=== PATIENT | male | born 1985 | race Caucasian/White ===

== ENCOUNTER 2016-07-16 10:25 | Emergency (ER) | payer SELFPAY ==
[2016-07-16] MEDS ORDERED: SODIUM CHLORIDE 0.9% 1,000 ML ONE (11:55)
[2016-07-16] MEDS ORDERED: ONDANSETRON 4 MG/2ML 2 ML VIAL ONE (11:55)
[2016-07-16 12:14] LABS: ABSOLUTE NEUTROPHIL COUNT 10.2 K/mm3 (1.8-7.7); BASO % 0.2 % (0.2-1.0); EOS % 0.1 % (0.9-2.9); HEMATOCRIT 45.3 % (32.0-52.0); HEMOGLOBIN 15.6 gm/l (14.0-18.0); IMM NEUT% 0.3 % (0-1); LYMPH # 1.1 (1.0-4.8); LYMPH % 8.9 % (15-45); MEAN CELL VOLUME 89.3 fl (80.0-94.0); MEAN CORPUSCULAR HEMOGLOBIN 30.8 pg (27.0-31.0); MEAN CORPUSCULAR HGB CONC 34.4 g/dl (33.0-37.0); MEAN PLATELET VOLUME 9.4 fl (7.4-10.4); MONO # 0.6 (0.0-0.8); MONO % 5.2 % (4-12); NEUT % 85.3 % (43-75); PLATELET COUNT 321 K/mm3 (130-400); RED CELL DISTRIBUTION WIDTH 12.6 % (11.5-14.5)
[2016-07-16 12:29] LABS: ALB/GLOB RATIO 1.6 (>1.0); ALBUMIN 4.5 gm/dL (3.5-5.7); CALCIUM 9.5 mg/dL (8.6-10.3)
[2016-07-16] MEDS ORDERED: MAALOX/LIDO2%VISC/SIMETHICONE 40 ML BOT ONE (12:32)
[2016-07-16] MEDS ORDERED: ACETAMINOPHEN 325 MG TABLET ONE (12:32)
[2016-07-16] MEDS ORDERED: PROCHLORPERAZINE 5 MG/ML 2 ML VIAL ONE (12:33)
[2016-07-16] MEDS ORDERED: SUCRALFATE 1 G/10 ML DOSE ONE (12:33)
[2016-07-16] MEDS ORDERED: DIPHENHYDRAMINE HCL 50 MG/1 ML VIAL ONE (12:33)
[2016-07-16] MEDS ORDERED: FAMOTIDINE 20 MG TABLET ONE (12:49)
== END 2016-07-16 13:43 | disposition home or self-care (01) ==
LOC: ED 10:25
DX: K92.0 Hematemesis (principal); R19.7 Diarrhea, unspecified; K25.7 Chronic gastric ulcer without hemorrhage or perforation
CPT/HCPCS: 85025; 80053; 96375 ×2; 99284 ×2; 96374; 96361; J1200; A9270 ×4; J0780; J2405; J7030